=== PATIENT | female | born 1965 | race Caucasian/White ===

== ENCOUNTER 2018-11-18 09:36 | Day surgery (SDC) | payer OTHER ==
[~2018-11-18] VITALS: Ht 144.8 cm; Wt 55.9 kg
[2018-11-18 10:39] VITALS: Ht 144.8 cm; Wt 55.9 kg
[2018-11-18] MEDS ORDERED: JARDIANCE (10:43)
[2018-11-18] MEDS ORDERED: FISH OIL (10:43)
[2018-11-18] MEDS ORDERED: ASPIRIN (10:43)
[2018-11-18] MEDS ORDERED: VITAMIN E (10:43)
[2018-11-18] MEDS ORDERED: METFORMIN (10:43)
[2018-11-18] MEDS ORDERED: VITAMIN D (10:43)
[2018-11-18] MEDS ORDERED: GLIPIZIDE (10:43)
[2018-11-18] MEDS ORDERED: SIMVASTATIN (10:43)
[2018-11-18] MEDS ORDERED: INSULIN (10:43)
[2018-11-18] MEDS ORDERED: NAPROXEN (10:43)
[2018-11-18 11:14] VITALS: BP 111/53; PULSE 65; RESP 16
[2018-11-18] MEDS ORDERED: FENTAnyl 50 MCG/ML VIAL ONE (11:59)
[2018-11-18] MEDS ORDERED: MIDAZOLAM 1 MG/ML 2 ML INJ ONE ×2 (12:00)
[2018-11-18 12:28] VITALS: BP 95/50; RESP 19
== END 2018-11-18 14:14 | disposition home or self-care (01) ==
LOC: GIL 09:36
PROVIDERS: ATTEND Internal Medicine Gastroenterology
DX: K64.8 Other hemorrhoids (principal)
CPT/HCPCS: 45378; 82962; J2250; J3010; Z7610